=== PATIENT | male | born 1995 | race Asian ===

== ENCOUNTER 2017-12-04 18:04 | Emergency (ER) | payer MEDICAID ==
--- NOTE | 2017-12-04 19:44 | ED Physician Chart ---
ED Chief Complaint/HPI - Patient Information Date Seen:: 12/04/17 Time Seen:: 19:39 Chief Complaint:: Elevated blood pressure History of Present Illness:: 22 yo male was noticed to have elevated BP after feeling SOB in class 5 hours ago. The high BP persisted until patient came to ER and the initial reading was 147/90. Patient stated that he was stressed out due to heavy class load at college. His father recently of massive ND. Allergies:: Allergies Allergy/AdvReac Type Severity Reaction Status Date / Time No Known Allergies Allergy Verified 12/04/17 18:21 Vitals:: Vital Signs - 8 hr 12/04/17 12/04/17 18:21 19:35 Temp 99.6 F HR 90 88 RR 16 18 O2 Sat % 100 100 ED Review of Systems - Review of Systems General/Constitutional: No fever Skin: No skin lesions Head: No headache Eyes: No pain ENT: No nasal drainage Neck: No neck pain Cardio Vascular: No chest pain Pulmonary: SOB GI: No nausea, No vomiting Musculoskeletal: No bone or joint pain Psychiatric: Anxiety Neurological: No focal symptoms ED Past Medical History - Past Medical History Past Medical History: No significant medical hx Social History: Non Smoker, No Alcohol, No Drug Use Surgical History: None Family Medical History - Family Member Father Living Status: Other Medical History: ND ED Physical Exam - Physical Examination General/Constitutional: Awake Head: Atraumatic Eyes: PERRL Skin: No skin lesions ENMT: Nasal exam nl Neck: No nuchal rigidity Respiratory: No Wheeze/Rhonchi/Rales Cardio Vascular: RRR, No murmur, gallop, rubs, NL S1 S2 GI: No tenderness/rebounding/guarding Extremities: normal strength in all extremities Neuro/Psych: No focal deficits ED Labs/Radiology/EKG Results - Radiology Results Results: CXR: no focal consolidation ED Assessment - Assessment General Assessment: Anxiety with panic attack Hypertension Assessment/Comments:: CBC, CMP, Trop I, BNP CXR, EKG All results were negative Metoprolol 50mg PO BP 123/63 D/c home F/u PCP for BP control ED Septic Shock - . Is Septic Shock (SBP<90, OR Lactate>4 mmol\L) present?: No - <6hrs of presentation: Vital Signs: Vital Signs - 8 hr 12/04/17 12/04/17 18:21 19:35 Temp 99.6 F HR 90 88 RR 16 18 O2 Sat % 100 100 ED Reassessment (Disposition) - Reassessment Reassessment Condition:: Improved - Patient Disposition Discharge/Transfer:: Home ED Discharge Plan - Patient Disposition Admit/Discharge/Transfer: PT DISCHARGED HOME Condition at Disposition: Stable Prescriptions: Metoprolol Tartrate [Lopressor] 50 mg PO DAILY #30 tab Instructions: Hypertension, [id number] Additional Instructions: MAKE A FOLLOW UP WITH PRIMARY MEDICAL DOCTOR RUBI, COMPLY WITH THE PRESCRIBED MEDICATION, GO BACK TO EMERGENCY ROOM IF SYMPTOMS WORSEN. Forms: School Release Form
[2017-12-04 20:20] LABS: % BASOPHILS 1.5 % (0.0-2.0); % EOSINOPHILS 2.5 % (0.0-5.0); % LYMPHOCYTES 26.5 % (20.0-50.0); % MONOCYTES 6.1 % (2.0-10.0); % NEUTROPHILS 63.4 % (40.0-80.0); BASOPHILE ABSOLUTE 0.1 Th/cumm (0-0.2); EOSINOPHILE ABSOLUTE 0.2 Th/cmm (0.1-0.4); HEMATOCRIT 52.4 % (41.0-60); HEMOGLOBIN 17.6 gm/dL (12-16); LYMPHOCYTE ABSOLUTE 2.1 Th/cmm (1.5-3.0); MEAN CELL VOLUME 86.8 fl (80-99); MEAN CORPUSCULAR HEMOGLOBIN 29.2 pg (26.0-30.0); MEAN CORPUSCULAR HGB CONC 33.6 pg (28.0-36.0); MEAN PLATELET VOLUME 8.4 fl; MONOCYTE ABSOLUTE 0.5 Th/cmm (0.3-1.0); NEUTROPHILE ABSOLUTE 5.1 Th/cmm (1.8-8.0); PLATELET COUNT 257 Th/cmm (150-400); RED BLOOD COUNT 6.03 Mil/cmm (4.30-5.70); RED CELL DISTRIBUTION WIDTH 12.7 % (11.5-20.0)
[2017-12-04 20:37] LABS: ALB/GLOB RATIO 1.9 (1.0-1.8); ALBUMIN 4.9 gm/dL (4.2-5.5); ALKALINE PHOSPHATASE 57 U/L (34-104); ANION GAP 11.4 (7.0-16.0); BILIRUBIN,TOTAL 0.8 mg/dL (0.3-1.0); BUN - UREA NITROGEN 12 mg/dL (7-25); CALCIUM SERUM 9.7 mg/dL (8.6-10.3); CARBON DIOXIDE 27.8 mEq/L (21.0-31.0); CHLORIDE 99 mEq/L (98-107); CHOLESTEROL 146 mg/dL (<200); CREATININE - SERUM 1.1 mg/dL (0.7-1.3); GFR AFRICAN-AMERICAN > 60.0 ml/min (>90); GFR NON AFRICAN-AMERICAN > 60.0 ml/min; GLUCOSE 93 mg/dL (70-105); HDL -HIGH DENSITY LIPOPROTEIN 54 mg/dL (23-92); POTASSIUM SERUM 4.2 mEq/L (3.5-5.1); SGOT 34 U/L (13-39); SGPT/ALT 42 U/L (7-52); SODIUM SERUM 134 mEq/L (136-145); TOTAL PROTEIN,SERUM 7.5 gm/dL (6.0-8.3); TRIGLYCERIDES 68 mg/dL (<150)
--- NOTE | 2017-12-05 07:58 | Diagnostic Imaging Report ---
Chest x-ray single view History: Evidence of breath Findings: The heart size is normal. No focal pulmonary parenchymal processes. No hilar or mediastinal abnormalities. Impression: No acute abnormalities
== END 2017-12-04 23:15 | disposition home or self-care (01) ==
LOC: ER 18:04
DX: R03.0 Elevated blood-pressure reading, without diagnosis of hypertension (principal)
CPT/HCPCS: 36415-UA; 71045-TC; 80053-TC; 80061-TC; 83880-TC; 84443-TC; 84484-TC; 85025-TC; 93005